=== PATIENT | female | born 1985 | race Caucasian/White ===

== ENCOUNTER 2021-02-19 10:56 | Outpatient (CLI) | payer BC, MEDICAID, SELFPAY ==
--- NOTE | 2021-02-19 11:05 | XR_ITS ---
WS: [id number] Exam: XR thoracic spine 3V* [id number] Date/Time of Exam: 02/19/2021 11:05 AM Reason For Exam: PAIN IN THORACIC SPINE Findings: In the AP projection, the thoracic spine is straight. In the lateral projection, the thoracic curve is well maintained. The intervertebral disc spaces are intact. No fractures or anomalies of the tho racic spine are noted. XR/XR thoracic spine 3V* [id number] IMPRESSION: Negative thoracic spine.
== END 2021-02-19 10:57 | disposition home or self-care (01) ==
PROVIDERS: PCP Nurse Practitioner Primary Care; Visit Provider Anesthesiology Pain Medicine
DX: M54.6 Pain in thoracic spine (principal)
CPT/HCPCS: 72072